=== PATIENT | female | born 1970 | race Caucasian/White ===

== ENCOUNTER 2018-10-19 09:54 | Emergency (ER) | payer SELFPAY ==
[~2018-10-19] VITALS: Ht 160 cm; Wt 78.0 kg
[2018-10-19 09:56] VITALS: BP 148/78
--- NOTE | 2018-10-19 10:02 | NUR ---
PT AMBULATED TO ER BED 04
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
--- NOTE | 2018-10-19 10:07 | NUR ---
ERMD AT BEDSIDE
[2018-10-19] MEDS ORDERED: KETOROLAC 60 MG/2 ML VIAL IM ONE (10:25)
--- NOTE | 2018-10-19 10:34 | NUR ---
Patient discharged with v/s stable. Written and verbal after care instructions given and explained. Patient alert, oriented and verbalized understanding of instructions. Ambulatory with steady gait. All questions addressed prior to discharge. ID band removed. Patient advised to follow up with PMD. Rx of NORCO, IBUPROFEN given. Patient educated on indication of medication including possible reaction and side effects. Opportunity to ask questions provided and answered.
== END 2018-10-19 10:34 | disposition home or self-care (01) ==
LOC: EDBD 09:54 → MED 09:54 → MERGE 09:54 → MED 10:34
DX: M25.562 Pain in left knee (principal); M54.6 Pain in thoracic spine; V89.2XXA Person injured in unspecified motor-vehicle accident, traffic, initial encounter; Y93.89 Activity, other specified; Y92.89 Other specified places as the place of occurrence of the external cause; Y99.8 Other external cause status
CPT/HCPCS: 99283; J1885